=== PATIENT | female | born 1995 | race Caucasian/White ===

== ENCOUNTER 2017-02-24 21:38 | Emergency (ER) | payer SELFPAY ==
[2017-02-24] MEDS ORDERED: ONDANSETRON HCL INJ/PF 4 MG/2 ML SDV IV ONE (22:52)
[2017-02-24] MEDS ORDERED: NORMAL SALINE 1000 ML 1,000 ML IV ONE (22:52)
[2017-02-25] MEDS ORDERED: METOCLOPRAMIDE HCL INJ/PF 10 MG/2 ML SDV IV ONE ×2 (00:03→03:34)
--- NOTE | 2017-02-25 00:29 | ER Document Report ---
ED General - General Chief Complaint: Nausea/Vomiting Stated Complaint: VOMITING Time Seen by Provider: 02/25/17 00:22 Notes: Patient is a 21-year-old female presents with complaint of vomiting and . She is 16 weeks . She says she has had vomiting throughout her entire . She is followed by router tender on the face. She is on Zofran. She states she was also prescribed a clean just but she has been unable to hold it down. She says her first OB appointment she was prescribed Phenergan however she had a hard time swallowing the chalky pills without gagging and vomiting. No abdominal pain. No fevers. No vaginal bleeding or abnormal discharge. No dysuria. No other complaints at this time. This is her first . TRAVEL OUTSIDE OF THE [place] IN LAST 30 DAYS: No - Related Data Allergies/Adverse Reactions: No Known Allergies Allergy (Verified 02/25/17 02:22) Home Medications: Current Home Medications Ondansetron [Zofran Odt 4 mg Tablet] 1 tab PO Q4HP PRN 02/25/17 [History] Past Medical History - Social History Smoking Status: Never Smoker Chew tobacco use (# tins/day): No Frequency of alcohol use: None Drug Abuse: None Family History: Reviewed & Not Pertinent Patient has suicidal ideation: No Patient has homicidal ideation: No Renal/ Medical History: Denies: Hx Peritoneal Dialysis Past Surgical History: Reports: Hx Orthopedic Surgery - L knee Review of Systems - Review of Systems Notes: My Normal Review Basic REVIEW OF SYSTEMS: CONSTITUTIONAL : Denies fever, chills, or sweats. Denies recent illness. EENT: Denies eye, ear, throat, or mouth pain or symptoms. Denies nasal or sinus congestion. RESPIRATORY: Denies cough, cold, or chest congestion. Denies shortness of breath, difficulty breathing, or wheezing. GASTROINTESTINAL: Denies abdominal pain. intractable vomiting GENITOURINARY: Denies difficulty urinating, painful urination, burning, frequency, or blood in urine. FEMALE GENITOURINARY: Denies vaginal bleeding, abnormal or irregular periods. LMP: Currently MUSCULOSKELETAL: Denies neck or back pain or joint pain or swelling. SKIN: Denies rash or skin lesions. NEUROLOGICAL: Denies altered mental status or loss of consciousness. Denies headache. Denies weakness or paralysis or loss of use of either side. Denies problems with gait or speech. Denies sensory or motor loss. ALL OTHER SYSTEMS REVIEWED AND NEGATIVE. Physical Exam - Vital signs Vitals: Temp Pulse Resp BP Pulse Ox 97.9 F 98 16 141/86 H 99 02/24/17 22:50 02/24/17 22:50 10 22:50 02/24/17 22:50 02/24/17 22:50 - Notes Notes: General Appearance: Well nourished, alert, cooperative, no acute distress, no obvious discomfort. Actively vomiting. Vitals: reviewed, See vital signs table. Head: no swelling or tenderness to the head Eyes: PERRL, EOMI, Conjuctiva clear Mouth: No decreasd moisture Throat: No tonsillar inflammation, No airway obstruction, Lungs: No wheezing, No rales, No rhonci, No accessory muscle use, good air exchange bilaterally. Heart: Normal rate, Regular rythm, No murmur, no rub Abdomen: Normal BS, soft, No rigidity, No abdominal tenderness, No guarding, no rebound, no abdominal masses, no organomegaly Extremities: strength 5/5 in all extremities, good pulses in all extremities, no swelling or tenderness in the extremities, no edema. Skin: warm, dry, appropriate color, no rash Neuro: speech clear, oriented x 3, normal affect, responds appropriately to questions. Course - Re-evaluation Re-evalutation: 02/25/17 01:50 Patient's vomiting is feeling much improved. She continues have no pain in her abdomen and on reevaluation she has absolutely no pain to palpation of her abdomen. I am awaiting urinalysis results. I will give her more IV fluids she still has not yet urinated. 02/25/17 03:41 Patient received 2 L of fluids. She did urinate. She has no signs of infection in her urine. I did explain her laboratory results to her. She does have very slight hyperbilirubinemia and a leukocytosis. I informed her that sometimes this could mean gallbladder disease and right clinical setting; however, she has [place] no abdominal pain to palpation and she has not had any abdominal pain whatsoever so she with her vomiting. Also her vomiting has been continuous now since beginning of her therefore is most likely related to hyperemesis gravidarum. I informed her that if she ever does develop abdominal pain that she must return to the ER immediately. Also encouraged her return to ER immediately if she has intractable vomiting or fevers. Patient's nausea is still under good control after receiving 1 dose of Reglan. I will give her 1 more dose before she leaves so that she has medication in her system until she can get her prescriptions filled. Encouraged her follow-up closely with her OB provider. Patient agrees with plan and will be discharged home. Dictation of this chart was performed using voice recognition software; therefore, there may be some unintended grammatical errors. - Vital Signs Vital signs: Temp Pulse Resp BP Pulse Ox 97.9 F 98 16 141/86 H 99 02/24/17 22:50 02/24/17 22:50 02/24/17 22:50 02/24/17 22:50 02/24/17 22:50 - Laboratory Result Diagrams: 02/25/17 00:20 02/25/17 00:20 Laboratory results interpreted by me: 02/25/17 02/25/17 02/25/17 00:20 00:20 02:50 WBC 18.9 H Absolute Neutrophils 13.9 H Calcium 10.8 H Total Bilirubin 1.8 H Direct Bilirubin 1.0 H AST 40 H Beta HCG, Quant 58246.00 H Urine Protein 30 H Urine Ketones 80 H Urine Bilirubin SMALL H Urine Urobilinogen 4.0 H Ur Leukocyte Esterase TRACE H Urine Ascorbic Acid 40 H Discharge - Discharge Clinical Impression: Vomiting affecting Condition: Good Disposition: HOME, SELF-CARE Additional Instructions: Hyperemesis Gravidarum Hyperemesis gravidarum is the medical term for severe vomiting during . We don't know exactly why it occurs, but it's a common problem. Dehydration can occur. This reduces blood flow to the placenta, decreasing the baby's nourishment. The baby will also become dehydrated. There can be harmful changes in blood sodium, potassium, or acid balance. Our goal is to correct, and prevent, dehydration. For severe cases, we give IV fluids. Antinausea medication will be prescribed. (Don't be concerned about " defects" -- the risk to you and your baby from the hyperemesis is the biggest problem. The antinausea medication is very safe at this stage of .) Call the doctor if you have vaginal bleeding, abdominal pain, severe lightheadedness or weakness, or other alarming symptoms. Please take the Reglan. Please take the Phenergan suppositories instead if you are unable to swallow the phenergan due to vomiting. Do not take Phenergan and reglan at the same time. Please take one or the other. Please return to the ER immediately if you have fevers, any abdominal pain, or intractable vomiting. Please follow up with your OB provider on Tuesday. Prescriptions: Metoclopramide HCl [Reglan 10 mg Tablet] 1 tab PO ASDIR PRN #25 tablet PRN Reason: Promethazine HCl [Phenergan 25 mg Supp.rect] 1 supp TX Q6H #15 supp.rect Forms: Return to Work
[2017-02-25 00:32] LABS: ABSOLUTE BASOPHILS # (AUTO) 0.1 10^3/uL (0.0-0.2); ABSOLUTE LYMPHOCYTES (AUTO) 3.6 10^3/uL (0.5-4.7); ABSOLUTE MONOCYTES (AUTO) 1.2 10^3/uL (0.1-1.4); ABSOLUTE NEUT (AUTO) 13.9 10^3/uL (1.7-8.2); BASOPHILS % (AUTO) 0.6 % (0-2); EOSINOPHILS % (AUTO) 0.1 % (0-6); HEMATOCRIT 38.9 % (36.0-47.0); HEMOGLOBIN 13.2 g/dL (12.0-15.5); HGB HCT DIFFERENCE 0.7; LYMPHOCYTES % (AUTO) 19.1 % (13-45); MEAN CORPUSCULAR HEMOGLOBIN 29.4 pg (27.0-33.4); MEAN CORPUSCULAR VOLUME 86 fl (80-97); MONOCYTES % (AUTO) 6.5 % (3-13); RED CELL DISTRIBUTION WIDTH 13.3 % (11.5-14.0); SEGMENTED NEUTROPHILS % (AUTO) 73.7 % (42-78); WHITE BLOOD COUNT 18.9 10^3/uL (4.0-10.5)
[2017-02-25 00:54] LABS: ALANINE AMINOTRANSFERASE 49 U/L (9-52); ALBUMIN 4.8 g/dL (3.5-5.0); ALKALINE PHOSPHATASE 85 U/L (38-126); ANION GAP 19 (5-19); ASPARTATE AMINO TRANSFERASE 40 U/L (14-36); BILIRUBIN,TOTAL 1.8 mg/dL (0.2-1.3); BLOOD UREA NITROGEN 16 mg/dL (7-20); CALCIUM 10.8 mg/dL (8.4-10.2); CARBON DIOXIDE 23 mmol/L (22-30); CHLORIDE 100 mmol/L (98-107); CREATININE RESULT 0.69 mg/dL (0.52-1.25); GLUCOSE 96 mg/dL (75-110); LIPASE 97.3 U/L (23-300); POTASSIUM 3.6 mmol/L (3.6-5.0); SODIUM 141.8 mmol/L (137-145)
[2017-02-25] MEDS ORDERED: NORMAL SALINE 1000 ML 1,000 ML IV ONE (01:42)
[2017-02-25 03:24] LABS: APPEARANCE,URINE SLIGHTLY-CLOUDY; BILIRUBIN,URINE SMALL (NEGATIVE); GLUCOSE, URINE NEGATIVE (NEGATIVE); KETONES,URINE 80 mg/dL (NEGATIVE); LEUKOCYTE ESTERASE,URINE TRACE (NEGATIVE); NITRITE,URINE NEGATIVE (NEGATIVE); PROTEIN,URINE 30 mg/dL (NEGATIVE); URINE SPECIFIC GRAVITY 1.024
[2017-02-25 03:41] VITALS: BP 118/68
== END 2017-02-25 04:15 | disposition home or self-care (01) ==
LOC: ER 21:38
DX: O21.9 Vomiting of pregnancy, unspecified (principal); O99.112 Other diseases of the blood and blood-forming organs and certain disorders involving the immune mechanism complicating pregnancy, second trimester; D72.829 Elevated white blood cell count, unspecified; Z3A.16 16 weeks gestation of pregnancy; Z79.899 Other long term (current) drug therapy
CPT/HCPCS: 99284; 96361; 96374; 36415; 84702; 83690; 83735; 85025; 80053; 81001; J2765; J7030